=== PATIENT | female | born 1985 | race Caucasian/White ===

== ENCOUNTER 2023-10-09 08:20 | Emergency (ER) | payer SELFPAY ==
[~2023-10-09] VITALS: Ht 167.6 cm; Wt 66.0 kg
[2023-10-09 08:51] VITALS: O2SAT 99
[2023-10-09] MEDS ORDERED: FAMOTIDINE 20MG TABLET PO ONE (10:00)
[2023-10-09] MEDS ORDERED: DIPHENHYDRAMINE 25MG CAPSULE PO ONE (10:00)
[2023-10-09] MEDS ORDERED: PREDNISONE 20MG TABLET PO ONE (10:00)
[2023-10-09] MEDS: DIPHENHYDRAMINE 25MG CAPSULE PO NR (11:44)
[2023-10-09] MEDS: FAMOTIDINE 20MG TABLET PO NR (11:44)
[2023-10-09] MEDS: PREDNISONE 20MG TABLET PO NR (11:44)
[2023-10-09] MEDS ORDERED: EPIN0.3P3 IM (13:17)
[2023-10-09] MEDS ORDERED: P20 MT (13:17)
[2023-10-09] MEDS ORDERED: DIPH25CA83 MT (13:17)
[2023-10-09] MEDS ORDERED: FAMO-135 MT (13:17)
[2023-10-09 14:33] VITALS: BP 133/74; PULSE 100; RESP 65; TEMP 98.2
== END 2023-10-09 13:48 | disposition home or self-care (01) ==
LOC: EDBD 08:20 → ER 08:20
DX: T78.49XA Other allergy, initial encounter (principal); R21 Rash and other nonspecific skin eruption; X58.XXXA Exposure to other specified factors, initial encounter
CPT/HCPCS: 99284; 81025; Q0163; J7512